=== PATIENT | male | born 1945 | race Caucasian/White ===

== ENCOUNTER 2019-02-18 18:36 | Inpatient (IN) ==
[2019-02-18] MEDS ORDERED: SODIUM CHLORIDE 0.9% 1,000 ML IV STA (18:59)
[2019-02-18] MEDS ORDERED: KETOROLAC 30 MG/1 ML VIAL IV STA (18:59)
[2019-02-18 19:11] LABS: Basophils % 0.3 % (0.0-0.8); Eosinophils # 0.1 10*3/uL (0.0-0.87); Eosinophils % 0.6 % (0.00-10.9); Hematocrit 39.2 VOL% (42.0-52.0); Hemoglobin 13.4 GM/DL (14.0-18.0); Immature Granulocytes % 0.3 %; Immature Granulocytes Absolute 0.04 #; Lymphocytes # 0.5 10*3/uL (1.4-4.0); Lymphocytes % 4.4 % (21.2-54.2); Mean Corpuscular HGB Conc 34.2 GM/DL (32-36); Mean Corpuscular Volume 94.9 FL (87-102); Mean Platelet Volume 9.6 FL (9.6-12.0); Neutrophils % 85.4 % (38.7-73.9); Platelet Count 197 T/CUMM (130-400); Red Blood Count 4.13 MC/CUMM (3.8-5.5); Red Cell Distribution Width 12.7 % (9.3-17.3); White Blood Count 11.7 T/CUMM (4-12)
[2019-02-18 19:36] LABS: Albumin 2.9 G/DL (3.4-5.0); Bilirubin,Total 0.9 MG/DL (0.2-1.0); Calcium 8.5 MG/DL (8.5-10.1); Osmolality,Calculated 274.1 MOS/KG (273-304); Total Protein 7.4 G/DL (6.4-8.3)
[2019-02-18] MEDS ORDERED: PIPERACILLIN/TAZOBACTAM 3,375 MG in SODIUM CHLORIDE 0.9% 100 ML IV STA (20:04)
[2019-02-18] MEDS ORDERED: PIPERACILLIN/TAZOBACTAM 3,375 MG in SODIUM CHLORIDE 0.9% 100 ML IV SCH (20:30)
[2019-02-18 21:01] LABS: Band Neutrophils 2 % (0-10); Lymphocytes 5 % (20-55); Macrocytosis 1+; Segmented Neutrophils 85 % (50-85); Total Cells Counted 100
[2019-02-18 21:02] LABS: Anisocytosis 1+; Poikilocytosis Slight; Polychromasia Few
[2019-02-18 21:03] LABS: Platelet Estimate Normal
[2019-02-18] MEDS: LACTATED RINGERS 1,000 ML IV SCH (21:52)
[2019-02-18] MEDS: PIPERACILLIN/TAZOBACTAM 3,375 MG in SODIUM CHLORIDE 0.9% 100 ML IV SCH (21:54)
[2019-02-19 01:37] LABS: Apearance,Urine CLEAR (Clear); Bilirubin,Urine Negative (Negative); Blood, Urine Small mg/dL (Negative); Glucose,Urine (UA) Negative (Negative); Ketones,Urine Negative (Negative); Nitrite,Urine Negative (Negative); Protein,Urine Negative; RBC,Urine 5 /HPF (0-4); Urine Color Yellow (Yellow); WBC,Urine 1 /HPF (0-6)
[2019-02-19] MEDS: PIPERACILLIN/TAZOBACTAM 3,375 MG in SODIUM CHLORIDE 0.9% 100 ML IV SCH ×3 (06:14→22:46)
[2019-02-19] MEDS ORDERED: BUPIVACAINE MPF 0.25% 30 ML VIAL ONE (10:19)
[2019-02-19] MEDS ORDERED: LIDOCAINE 1%/EPI INJ 20 ML VIAL ONE (10:19)
[2019-02-19] MEDS ORDERED: TISSUE ADHESIVE 1 EACH APPLICATOR TOP ONE (10:20)
[2019-02-19] MEDS: LACTATED RINGERS 1,000 ML IV SCH ×2 (11:51→14:40)
[2019-02-19] MEDS ORDERED: propofoL 200 MG/20 ML VIAL IV ONE (13:17)
[2019-02-19] MEDS ORDERED: GLYCOPYRROLATE 0.4 MG/2 ML VIAL ONE (13:18)
[2019-02-19] MEDS ORDERED: MIDAZOLAM 2 MG/2 ML VIAL ONE (13:18)
[2019-02-19] MEDS ORDERED: ONDANSETRON 4 MG/2 ML VIAL ONE (13:18)
[2019-02-19] MEDS ORDERED: DEXAMETHASONE 4 MG/1 ML VIAL ONE (13:18)
[2019-02-19] MEDS ORDERED: LIDOCAINE 2% 5 ML VIAL ONE (13:18)
[2019-02-19] MEDS ORDERED: KETOROLAC 30 MG/1 ML VIAL ONE (13:18)
[2019-02-19] MEDS ORDERED: fentaNYL 100 MCG/2 ML VIAL ONE (13:18)
[2019-02-19] MEDS ORDERED: SEVOFLURANE 1 UNIT/15 MINUTE INH ONE (13:18)
[2019-02-19] MEDS ORDERED: LACTATED RINGERS 1,000 ML IV ONE (13:19)
[2019-02-19] MEDS ORDERED: NEOSTIGMINE 10 MG/10 ML VIAL ONE (13:19)
[2019-02-19] MEDS ORDERED: ROCURONIUM 100 MG/10 ML VIAL IV ONE (13:19)
[2019-02-19] MEDS ORDERED: PHENYLEPHRINE 1 MG/10 ML SYRINGE IV ONE (13:19)
[2019-02-19] MEDS ORDERED: MORPHINE 4 MG/1 ML VIAL IV PRN (22:21)
[2019-02-19] MEDS ORDERED: ONDANSETRON 4 MG/2 ML VIAL IV PRN (22:22)
[2019-02-20] MEDS: LACTATED RINGERS 1,000 ML IV SCH ×3 (01:47→22:52)
[2019-02-20] MEDS: PIPERACILLIN/TAZOBACTAM 3,375 MG in SODIUM CHLORIDE 0.9% 100 ML IV SCH ×3 (06:11→22:56)
[2019-02-20] MEDS ORDERED: BISACODYL 10 MG SUPP RECTAL ONE (20:35)
[2019-02-20] MEDS: DOCUSATE SODIUM 100 MG CAPSULE PO SCH (21:55)
[2019-02-21] MEDS: LACTATED RINGERS 1,000 ML IV SCH (04:13)
[2019-02-21] MEDS: PIPERACILLIN/TAZOBACTAM 3,375 MG in SODIUM CHLORIDE 0.9% 100 ML IV SCH (06:39)
[2019-02-21] MEDS: DOCUSATE SODIUM 100 MG CAPSULE PO SCH (09:09)
[2019-02-21 11:45] VITALS: BP 154/90
== END 2019-02-21 11:43 | disposition home or self-care (01) | DRG 417 ==
LOC: N.ED 18:36 → N.EDINP 18:36 → N.3E 20:51
PROVIDERS: ADMIT Emergency Medicine; ATTEND Surgery
PROC: LAPCHOL (2019-02-19 11:45)